=== PATIENT | male | born 1995 | race American Indian/Alaskan Native ===

== ENCOUNTER 2018-12-21 09:03 | Emergency (ER) | payer SELFPAY ==
--- NOTE | 2018-12-21 09:41 | Emergency Department Report ---
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 He reports no recent injury. He reports no fall. He does not relate his discomfort in the left trapezius area to an event that occurred at work. He states he slept on that side and when he awoke it was sore. He states that the discomfort increases when he moves his neck. He reports no sensory or motor changes. He reports no difficulty walking her 80s had no fever or chills. -: During the night Location: left (trapezius area) Radiation: non-radiation Quality: aching Consistency: intermittent Improves with: none Worsens with: movement Associated Symptoms: denies other symptoms Treatments Prior to Arrival: none - Related Data Previous Rx's Medication Instructions Recorded Last Taken Type Cyclobenzaprine HCl [Flexeril 5 MG 5 mg PO TID #7 tab 12/21/18 Unknown Rx TAB] Naproxen [Naprosyn] 500 mg PO BID #7 tablet 12/21/18 Unknown Rx ED Review of Systems ROS: Stated complaint: NECK PAIN Other details as noted in HPI Constitutional: denies: chills, fever Eyes: denies: eye pain, eye discharge, vision change ENT: denies: ear pain, throat pain Respiratory: denies: cough, shortness of breath, wheezing Cardiovascular: denies: chest pain, palpitations Endocrine: no symptoms reported Gastrointestinal: denies: abdominal pain, nausea, diarrhea Genitourinary: denies: urgency, dysuria Musculoskeletal: as per HPI, myalgia. denies: back pain, joint swelling, arthralgia Skin: denies: rash, lesions Neurological: denies: headache, weakness, paresthesias Psychiatric: denies: anxiety, depression Hematological/Lymphatic: denies: easy bleeding, easy bruising ED Past Medical Hx - Past Medical History Previous Medical History?: No - Social History Substance Use Type: None - Medications Home Medications: Home Medications Medication Instructions Recorded Confirmed Last Taken Type Cyclobenzaprine HCl [Flexeril 5 MG 5 mg PO TID #7 tab 12/21/18 Unknown Rx TAB] Naproxen [Naprosyn] 500 mg PO BID #7 tablet 12/21/18 Unknown Rx ED Physical Exam - General Limitations: No Limitations General appearance: alert, in no apparent distress - Head Head exam: Present: atraumatic, normocephalic - Eye Eye exam: Present: normal appearance - ENT ENT exam: Present: mucous membranes moist - Neck Neck exam: Present: normal inspection, tenderness (the patient has reproducible tenderness over the left trapezius area), full ROM. Absent: meningismus, lymphadenopathy, thyromegaly - Respiratory Respiratory exam: Present: normal lung sounds bilaterally. Absent: respiratory distress - Cardiovascular Cardiovascular Exam: Present: regular rate, normal rhythm. Absent: systolic murmur, diastolic murmur, rubs, gallop - GI/Abdominal GI/Abdominal exam: Present: soft, normal bowel sounds. Absent: distended, tenderness, guarding, rebound - Rectal Rectal exam: Present: deferred - Extremities Exam Extremities exam: Present: normal inspection. Absent: pedal edema, joint swelling, calf tenderness - Back Exam Back exam: Present: normal inspection - Neurological Exam Neurological exam: Present: alert, oriented X3, CN II-XII intact, normal gait. Absent: motor sensory deficit - Psychiatric Psychiatric exam: Present: normal affect, normal mood - Skin Skin exam: Present: warm, dry, intact, normal color. Absent: rash ED Course - Reevaluation(s) Reevaluation #1: The patient was offered a cervical spine x-ray. He declined it. I do think it would be low yield. He is encouraged to follow-up for further evaluation should his symptoms persist. They do appear to be musculoskeletal in nature. 12/21/18 09:39 Critical care attestation.: If time is entered above; I have spent that time in minutes in the direct care of this critically ill patient, excluding procedure time. ED Disposition Clinical Impression: Trapezius strain Qualifiers: Encounter type: initial encounter Laterality: left Qualified Code(s): S46.812A - Strain of other muscles, fascia and tendons at shoulder and upper arm level, left arm, initial encounter Disposition: - TO HOME OR SELFCARE Is pt being admited?: No Does the pt Need Aspirin: No Condition: Stable Instructions: Muscle Strain (ED) Additional Instructions: See orthopedist if any persistent problem. Rx as directed. Should you like to get further evaluation such as an x-ray of your neck he may return as desired. Prescriptions: Cyclobenzaprine HCl [Flexeril 5 MG TAB] 5 mg PO TID #7 tab Naproxen [Naprosyn] 500 mg PO BID #7 tablet Referrals: MARYCHUY BRITO MD [Staff Physician] - 3-5 Days Forms: Work/School Release Form(ED) Time of Disposition: 09:43
[2018-12-21 10:00] VITALS: BP 128/83
== END 2018-12-21 10:00 | disposition home or self-care (01) ==
LOC: ED 09:03
DX: S46.812A Strain of other muscles, fascia and tendons at shoulder and upper arm level, left arm, initial encounter (principal); X50.9XXA Other and unspecified overexertion or strenuous movements or postures, initial encounter; Y93.89 Activity, other specified; Y92.89 Other specified places as the place of occurrence of the external cause; Y99.8 Other external cause status
CPT/HCPCS: 99281